=== PATIENT | female | born 1960 | race Caucasian/White ===

== ENCOUNTER → 2017-01-25 | Outpatient (CLI) | payer BC ==
--- NOTE | 2017-01-25 11:56 | REPMRS ---
Patient History The patient states she had a clinical breast exam in 05/31 Patient is postmenopausal. Family history of prostate cancer in father and colorectal cancer in paternal grandmother at age 50 or over. Benign stereotatic breast biopsy of both breasts, May 21, 2010. Benign excisional biopsy of the left breast, 1983. Digital Woman Screen Mammo: January 25, 2017 - Exam #: [id number] Bilateral CC and MLO view(s) were taken. Technologist: Brooklyn Burroughs, Technologist Prior study comparison: January 06, 2016, digital woman screen mammo performed at [facility]. July 16, 2014, digital woman screen mammo performed at [facility] [place]. FINDINGS: There are scattered fibroglandular densities. There has been no change in the appearance of the mammogram from the prior studies. There is a mild amount of residual fibroglandular tissue which is fairly symmetric. There is no interval development of dominant mass, architectural distortion, or clustered microcalcification suggestive of malignancy. ASSESSMENT: BI-RADS/ACR category 1 mammogram. Negative. Recommendation Routine screening mammogram in 1 year (for women over age 40). This mammogram was interpreted with the aid of an FDA-approved computer-aided dectection system. Electronically Signed By: Elias Bryant MD 01/25/17 0570
== END ==
LOC: M WHC 10:57
PROVIDERS: ATTEND Obstetrics & Gynecology
DX: Z12.31 Encounter for screening mammogram for malignant neoplasm of breast (principal); Z78.0 Asymptomatic menopausal state; Z92.89 Personal history of other medical treatment

== ENCOUNTER → 2018-03-01 | Outpatient (CLI) | payer OTHER | LOC: M WHC 14:29 | DX: Z12.31 Encounter for screening mammogram for malignant neoplasm of breast (principal) | CPT/HCPCS: 77067 ==

== ENCOUNTER → 2019-05-25 | Outpatient (CLI) | payer OTHER ==
--- NOTE | 2019-05-25 14:18 | REPMRS ---
Patient History The patient states she had a clinical breast exam in 06/2018. Family history of colorectal cancer at age 50 or over in paternal grandmother, prostate cancer in father. Benign stereotatic breast biopsy of both breasts, May 21, 2010. Benign excisional biopsy of the left breast, 1983. 3D TOMOSYNTHESIS WAS PERFORMED. The [facility] [address] lifetime risk for breast cancer is 7.6%. Digital Woman Screen Mammo: May 25, 2019 - Exam #: [id number] Bilateral CC and MLO view(s) were taken. Technologist: Brooklyn Burroughs, Technologist Prior study comparison: March 01, 2018, bilateral digital woman screen mammo performed at [facility]. January 25, 2017, digital woman screen mammo performed at [facility] [employer] [facility]. FINDINGS: There are scattered fibroglandular densities. There has been no change in the appearance of the mammogram from the prior studies. There is a mild amount of residual fibroglandular tissue which is fairly symmetric. There is no interval development of dominant mass, architectural distortion, or clustered microcalcification suggestive of malignancy. Assessment: BI-RADS/ACR category 1 mammogram. Negative Mammogram. Recommendation Routine screening mammogram in 1 year (for women over age 40). This mammogram was interpreted with the aid of an FDA-approved computer-aided dectection system. Electronically Signed By: Elias Bryant MD 05/25/19 [id number]
== END ==
LOC: M WHC 12:32
PROVIDERS: ATTEND Obstetrics & Gynecology
DX: Z12.31 Encounter for screening mammogram for malignant neoplasm of breast (principal); Z80.42 Family history of malignant neoplasm of prostate; Z86.018 Personal history of other benign neoplasm

== ENCOUNTER → 2020-06-03 | Outpatient (CLI) | payer BC, OTHER ==
--- NOTE | 2020-06-03 13:28 | REPMRS ---
Patient History The patient states she had a clinical breast exam in 06/2020. Patient is postmenopausal. Family history of colorectal cancer at age 50 or over in paternal grandmother, prostate cancer in father. Benign stereotatic breast biopsy of both breasts, May 21, 2010. Benign excisional biopsy of the left breast, 1983. No Hormone Replacement Therapy 3D TOMOSYNTHESIS WAS PERFORMED. The [facility] lifetime risk for breast cancer is 7.3%. VOLPARA DENSITY A. Digital Woman Screen Mammo: June 03, 2020 - Exam #: [id number] Bilateral CC and MLO view(s) were taken. Technologist: Zandra Leong, Technologist Prior study comparison: May 25, 2019, bilateral digital woman screen mammo performed at [facility]. March 01, 2018, bilateral digital woman screen mammo performed at [facility]. FINDINGS: There are scattered fibroglandular densities. There has been no change in the appearance of the mammogram from the prior studies. There is a mild amount of residual fibroglandular tissue which is fairly symmetric. There is no interval development of dominant mass, architectural distortion, or clustered microcalcification suggestive of malignancy. Assessment: BI-RADS/ACR category 1 mammogram. Negative Mammogram. Recommendation Routine screening mammogram in 1 year (for women over age 40). This mammogram was interpreted with the aid of an FDA-approved computer-aided dectection system. Electronically Signed By: Elias Bryant MD 06/03/20 [id number]
== END ==
LOC: M WHC 12:30
PROVIDERS: ATTEND Obstetrics & Gynecology
DX: Z12.31 Encounter for screening mammogram for malignant neoplasm of breast (principal); Z86.018 Personal history of other benign neoplasm

== ENCOUNTER → 2021-06-23 | Outpatient (CLI) | payer BC ==
--- NOTE | 2021-06-23 09:45 | REPMRS ---
Patient History The patient states she had a clinical breast exam in June 2020. Family history of colorectal cancer at age 50 or over in paternal grandmother, prostate cancer in father. Benign stereotatic breast biopsy of both breasts, May 21, 2010. Benign excisional biopsy of the left breast, 1983. No Hormone Replacement Therapy Tomosynthesis is performed. Volpara breast density is a. [facility] lifetime risk of breast cancer 7.0%. Patient states no breast complaints today. Patient has signed MRS History Sheet. Digital Woman Screen Mammo: June 23, 2021 - Exam #: [id number] Bilateral CC and MLO view(s) were taken. Technologist: Brooklyn Burroughs, Technologist Prior study comparison: June 03, 2020, bilateral digital woman screen mammo performed at [facility]. May 25, 2019, bilateral digital woman screen mammo performed at [facility]. FINDINGS: There are scattered fibroglandular densities. There has been no change in the appearance of the mammogram from the prior studies. There is a mild amount of residual fibroglandular tissue which is fairly symmetric. There is no interval development of dominant mass, architectural distortion, or clustered microcalcification suggestive of malignancy. Assessment: BI-RADS/ACR category 1 mammogram. Negative Mammogram. Recommendation Routine screening mammogram in 1 year (for women over age 40). This mammogram was interpreted with the aid of an FDA-approved computer-aided dectection system. Electronically Signed By: Elias Bryant MD 06/23/21 0944
== END ==
LOC: M WHC 08:42
PROVIDERS: ATTEND Obstetrics & Gynecology
DX: Z12.31 Encounter for screening mammogram for malignant neoplasm of breast (principal)

== ENCOUNTER → 2022-06-30 | Outpatient (CLI) | payer BC | LOC: M WHC 08:53 | PROVIDERS: ATTEND Internal Medicine | DX: Z12.31 Encounter for screening mammogram for malignant neoplasm of breast (principal) ==

== ENCOUNTER → 2022-07-24 | Outpatient (CLI) | payer BC | LOC: M SOG 15:31 | PROVIDERS: ATTEND Orthopaedic Surgery | DX: M25.571 Pain in right ankle and joints of right foot (principal); M77.31 Calcaneal spur, right foot ==

== ENCOUNTER → 2024-07-03 | Outpatient (CLI) | payer MEDICARE | LOC: M WHC 09:16 | PROVIDERS: ATTEND Nurse Practitioner Adult Health | DX: Z12.31 Encounter for screening mammogram for malignant neoplasm of breast (principal) ==

== ENCOUNTER → 2024-10-20 | Outpatient (CLI) | payer MEDICARE | LOC: M WHC 11:13 | PROVIDERS: ATTEND Nurse Practitioner Adult Health | DX: M85.89 Other specified disorders of bone density and structure, multiple sites (principal) ==

== ENCOUNTER → 2025-07-04 | Outpatient (CLI) | payer MEDICARE | LOC: M WHC 11:35 | PROVIDERS: ATTEND Nurse Practitioner Adult Health | DX: Z12.31 Encounter for screening mammogram for malignant neoplasm of breast (principal) ==